=== PATIENT | male | born 1940 | race Caucasian/White ===

== ENCOUNTER 2021-09-15 19:25 | Emergency (ER) | payer MEDICARE, OTHER | END 2021-09-15 21:50 | disposition home or self-care (01) | LOC: CSHERS 19:25 | DX: J30.9 Allergic rhinitis, unspecified (principal); R09.81 Nasal congestion; I10 Essential (primary) hypertension; E78.00 Pure hypercholesterolemia, unspecified; Z79.899 Other long term (current) drug therapy | CPT/HCPCS: 99283 ==